=== PATIENT | male | born 1945 | race Caucasian/White ===

== ENCOUNTER 2020-12-04 14:42 | Inpatient (IN) ==
--- NOTE | 2020-12-04 15:38 | Emergency Department Note ---
HPI General Chief complaint: Cold/Flu Symptoms Stated complaint: cough, SOB Time Seen by Provider: 12/04/20 14:57 Source: patient and family Mode of arrival: ambulatory Limitations: no limitations History of Present Illness HPI Narrative: Patient is a 75-year-old gentleman who arrives the patient as well as telephone discussion with his daughter. The patient has been feeling ill for the past 5 days with a cough and mild shortness of breath. Symptoms were gradual in onset and been gradually improving. He was seen at [facility] on the and diagnosed with COVID-19. The patient has received both doses of a COVID-19 vaccine. Last night, he was showing intermittent episodes of confusion and his family noticed his oxygen saturation was as low as 81%. Because of that they were concerned and brought him to the emergency department for further evaluation. Currently, the patient says he feels much better. He did have one episode of loose stool earlier today but otherwise has no physical complaints at this time. Related Data Home Medications Medication Instructions Recorded Confirmed aspirin 81 mg tablet,delayed 81 mg PO QDAY 04/25/19 12/02/20 release cholecalciferol (vitamin D3) 25 25 mcg PO BID cap 07/19/19 12/02/20 mcg (1,000 unit) capsule lisinopril 10 mg tablet 10 mg PO QDAY 01/18/20 12/02/20 metoprolol succinate 25 mg 25 mg PO QDAY 04/17/20 12/02/20 tablet,extended release 24 hr vitamins A,C,I-iudj-rwnfrp 14,320 1 cap PO BID 10/25/20 12/02/20 unit-226 mg-200 unit capsule Previous Rx's Medication Instructions Recorded blood pressure monitor #1 each 07/19/19 tamsulosin 0.4 mg capsule 0.8 mg PO QDAY #60 cap 01/09/20 amlodipine 5 mg tablet 5 mg PO QDAY #30 tab 01/29/20 levothyroxine 150 mcg capsule 150 mcg PO QDAY #30 cap 05/13/20 fluoxetine 40 mg capsule 40 mg PO QAM #30 cap 06/05/20 pantoprazole 40 mg tablet,delayed 40 mg PO QDAY #30 tab 07/18/20 release ferrous sulfate 325 mg (65 mg 325 mg PO QDAY #30 tab 09/16/20 iron) tablet divalproex 125 mg tablet,delayed 125 mg PO ONCE #30 tab 09/23/20 release rosuvastatin 10 mg tablet 10 mg PO QDAY #30 tab 10/21/20 famotidine 20 mg tablet See Rx Instructions .ROUTE 11/14/20 .COMPLEX #30 tab Allergies Allergy/AdvReac Type Severity Reaction Status Date / Time baclofen Allergy Severe Hallucinati Verified 12/02/20 11:35 ng codeine AdvReac Severe Stomach Verified 12/02/20 11:35 upset Review of Systems ROS ROS Narrative: Narrative: All systems ED: reviewed and negative except as stated. Constitutional: Denies fever and chills Gastrointestinal: Denies abdominal pain, nausea and vomiting PFSH Narrative Patient History Narrative: Narrative: Medical/Surgical/Family History All Active Problems (Updated 12/04/20 @ 16:46 by Eddie Byrd DO) Acute kidney injury due to COVID-19 (Acute) COVID-19 (Acute) Degenerative joint disease of left hip (Acute) GERD (gastroesophageal reflux disease) (Chronic) Arthritis (Chronic) Type 2 diabetes mellitus without complications (Chronic) HTN (hypertension) (Chronic) Hyperlipidemia (Chronic) Kidney failure (Chronic) Joint pain (Chronic) Insomnia (Chronic) H/O renal calculi (Chronic) Cardiac pacemaker (Chronic) Diabetes mellitus (Chronic) Vasculitis (Chronic) Hypothyroid (Chronic) Pacemaker (Chronic) Iron deficiency anemia (Chronic) BPH with obstruction/lower urinary tract symptoms (Chronic) Hyperlipidemia (Chronic) 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) Cough (Chronic) Decreased GFR (Chronic) ESR raised (Chronic) CRP elevated (Chronic) SHAHZAD positive (Chronic) Serous otitis media (Chronic) Otalgia, bilateral (Chronic) Cough productive of purulent sputum (Chronic) Respiratory complication (Chronic) Chronic kidney disease (CKD) stage G2/A3, mildly decreased glomerular filtration rate (GFR) between 60-89 mL/min/1.73 square meter and albuminuria creatinine ratio greater than 300 mg/g (Chronic) Encounter for long-term (current) use of high-risk medication (Acute) Hearing loss d/t noise (Acute) CKD (chronic kidney disease), stage III (Acute) Senile dementia (Acute) BPH w urinary obs/LUTS (Acute) Prostate cancer screening (Acute) HTN (hypertension), benign (Acute) CKD stage G3a/A2, GFR 45-59 and albumin creatinine ratio 30-299 mg/g (Chronic) Ingrown toenail of both feet (Acute) Depression (Acute) Medical History SHAHZAD positive ANCA-associated vasculitis Arthritis BPH with obstruction/lower urinary tract symptoms CAD (coronary artery disease) Cardiac pacemaker CKD (chronic kidney disease), stage III CKD stage G3a/A2, GFR 45-59 and albumin creatinine ratio 30-299 mg/g Cough Cough productive of purulent sputum CRP elevated Decreased GFR Degenerative joint disease (DJD) of lumbar spine Diabetes mellitus Encounter for long-term (current) use of high-risk medication ESR raised GERD (gastroesophageal reflux disease) H/O renal calculi HTN (hypertension) Hyperlipidemia Hyperlipidemia Hypothyroid Insomnia Iron deficiency anemia Joint pain Kidney failure Otalgia, bilateral Pacemaker Respiratory complication Serous otitis media Type 2 diabetes mellitus without complications Vasculitis Surgical History Hip joint replacement by other means History of lumbar fusion History of pacemaker (~2018) S/P hip replacement S/P TAVR (transcatheter aortic valve replacement) (~2018) Family History Mother Dementia Grandfather Diabetes Father Heart attack Son Diabetes Social History Smoking Status: Former smoker Alcohol Intake Frequency: does not drink Substance Use: does not use Exam Narrative Narrative: I reviewed the vital signs. Gen -patient is awake and alert and in no acute distress. The patient is well groomed. HEENT -head is atraumatic. There is no conjunctival pallor or scleral icterus. Mucous membranes are moist. CV -S1-S2 regular rate and rhythm. Peripheral pulses are palpable. There is no JVD. Resp -breathing is nonlabored. Lungs are clear to auscultation bilaterally. There is no cyanosis. GI - Abdomen is soft and nontender to palpation. There is no guarding or rebound tenderness. Derm -skin is warm and dry. There is no visible rash. MSK -present extremities are atraumatic. Psych -patient has appropriate affect. The patient does not appear internally stimulated. Neuro -patient is very hard of hearing but when he is able to hear does answer questions appropriately and is oriented to person place time and situation. There is no facial asymmetry. Patient moves all present extremities equally. General Limitations: no limitations Course Vital Signs Vital signs: Vital Signs Temperature 97.8 F 12/04/20 14:43 Pulse Rate 59 L 12/04/20 14:43 Respiratory Rate 16 12/04/20 14:43 Blood Pressure 152/57 12/04/20 14:43 Pulse Oximetry (%) 98 12/04/20 14:43 Temperature 97.8 F 12/04/20 14:43 Pulse Rate 60 12/04/20 16:22 Respiratory Rate 16 12/04/20 14:43 Blood Pressure 138/49 12/04/20 16:22 Pulse Oximetry (%) 97 12/04/20 16:22 MDM MDM Narrative Medical decision making narrative: Patient presents with symptoms of COVID-19 recently diagnosed on outpatient testing. Given his family concerns for intermittent confusion I obtained a CT scan of his brain that does not reveal any subdural hematoma. Labs are remarkable for creatinine significantly increased above his baseline. He did have a brief episode of hypotension in the emergency department which responded to IV fluids. Given his acute kidney in jury I recommended the patient be admitted and he is agreeable. I also discussed this with his son-in-law on the and his family agrees with the plan. I discussed the patient's history examination and diagnostic findings with Dr. Wilcox, who agrees with the plan of care and accepts admission. Lab Data Lab results reviewed: Yes I reviewed the patient's lab results. Labs: Lab Results 12/04/20 Range/Units 15:48 POC Hct 36 L (41-55) % POC Sodium 135 (133-145) mEq/L POC Potassium 4.4 (3.3-5.1) mEql/L POC Chloride 99 (96-108) mEq/L POC Total CO2 23 (22-30) mmol/L POC BUN 40 H (6-20) mg/dL POC Creatinine 2.9 H (0.6-1.2) mg/dL POC Glucose 91 (70-105) mg/dL POC WB Ioniz Calcium 1.13 L (1.16-1.32) mmEq/L Discharge Plan Patient/Caregiver Discharge Instructions Pt seen by MILL ATTENDANT/PA only: No Clinical Impression: COVID-19, Acute kidney injury due to COVID-19 Patient Disposition: Xfer As Inpt ([facility]) Follow up with: Gorge Payan MD [Primary Care Provider] - Prescriptions: No Action aspirin [Adult Aspirin Regimen] 81 mg tablet,delayed release (DR/EC) 81 mg PO QDAY RF: 0 amlodipine 5 mg tablet 5 mg PO QDAY Qty: 30 RF: 11 levothyroxine 150 mcg capsule 150 mcg PO QDAY Qty: 30 RF: 11 pantoprazole 40 mg tablet,delayed release (DR/EC) 40 mg PO QDAY Qty: 30 RF: 12 ferrous sulfate [Feosol] 325 mg (65 mg iron) tablet 325 mg PO QDAY Qty: 30 RF: 6 rosuvastatin 10 mg tablet 10 mg PO QDAY Qty: 30 RF: 6 famotidine 20 mg tablet See Rx Instructions .ROUTE .COMPLEX Qty: 30 RF: 0 (DME) blood pressure monitor Kit See Rx Instructions .ROUTE .MEDSUPPLY Qty: 1 RF: 0 lisinopril 10 mg tablet 10 mg PO QDAY RF: 0 metoprolol succinate 25 mg tablet extended release 24 hr 25 mg PO QDAY RF: 0 cholecalciferol (vitamin D3) 25 mcg (1,000 unit) capsule 25 mcg PO BID RF: 0 fluoxetine [Prozac] 40 mg capsule 40 mg PO QAM Qty: 30 RF: 12 divalproex [Depakote] 125 mg tablet,delayed release (DR/EC) 125 mg PO ONCE Qty: 30 RF: 5 ICaps AREDS 14,320-226-200 [id number] capsule 1 cap PO BID RF: 0 tamsulosin [Flomax] 0.4 mg capsule 0.8 mg PO QDAY Qty: 60 RF: 12
[2020-12-04 15:58] LABS: POC Blood Urea Nitrogen 40 mg/dL (6-20); POC CO2 23 mmol/L (22-30); POC Calcium, Ionized 1.13 mmEq/L (1.16-1.32); POC Chloride 99 mEq/L (96-108); POC Creatinine 2.9 mg/dL (0.6-1.2); POC Glucose, Random 91 mg/dL (70-105); POC Hematocrit 36 % (41-55); POC Potassium 4.4 mEql/L (3.3-5.1); POC Sodium 135 mEq/L (133-145)
[2020-12-04] MEDS ORDERED: 0.9 % SODIUM CHLORIDE 1,000 ML IV ONE ×2 (16:16→16:39)
--- NOTE | 2020-12-04 16:28 | Cat Scan Report ---
History: Increased confusion, cough, shortness of breath TECHNIQUE: The brain was imaged without contrast in axial plane at 2.5 mm intervals. Sagittal and coronal reformats were created. The radiation exposure was limited using dose reduction technology. FINDINGS: There is moderate bilateral cerebellar atrophy and mild to moderate atrophy along the upper convexities of the frontal and parietal lobes. A moderate-sized old infarct with encephalomalacia is present lateral to the head of the right caudate nucleus. Measures approximately 7 x 17 mm size. There is loss of brain parenchyma around the infarct, resulting in mild enlargement of the frontal horn of the right lateral ventricle. No new infarct is detected. There is no hemorrhage or mass effect. No hydrocephalus is present. There is no abnormal extra-axial fluid collection. There is focal soft tissue thickening in the scalp anterior to the left frontal bone. This could be scar or inflammation. The calvarium is normal without evidence of a fracture or destructive bone lesion. Patient has mucosal thickening along the kim of many of the ethmoid air cells bilaterally. Large amount calcified plaque is present in the cavernous portions of both internal carotids and there is moderate involvement in the vertebral arteries at the foramen magnum. IMPRESSION: Moderate-sized old lacunar infarct lateral to the head of the right caudate nucleus. Generalized cerebral atrophy No acute abnormality is detected. Dr. Byrd was called with the report Interpreted and Authenticated by: Giorgi Deleon 12/04/20
[2020-12-04 17:00] LABS: Basophils # (Auto) 0.02 K/mcL (0.00-0.30); Basophils % (Auto) 0.4 % (0.0-2.0); Eosinophils # (Auto) 0.03 K/mcL (0.00-0.70); Eosinophils % (Auto) 0.5 % (0.0-7.0); Hemoglobin 12.2 g/dL (13.7-17.5); Lymphocytes # (Auto) 1.42 K/mcL (1.50-4.80); Lymphocytes % (Auto) 25.9 % (15.5-49.0); Mean Cell Volume 95.7 fL (80.0-100.0); Mean Corpuscular HGB Conc 32.1 g/dL (31.0-36.0); Mean Platelet Volume 10.3 fL (7.4-10.4); Monocytes % (Auto) 12.8 % (1.0-12.0); Neutrophils % (Auto) 60.4 % (38.0-78.0); Platelet Count 161 K/mcL (140-440); RBC 3.97 M/mcL (4.63-6.08); WBC 5.5 K/mcL (4.5-11.0)
--- NOTE | 2020-12-04 17:08 | Internal Med History&Physical ---
HPI History of Present Illness Patient information: Note initiated : 12/04/20 at 5:04 pm Service Date, if different from initiated Date: [] Patient: Kathi Malone a 75 y/o M admitted on for cough, SOB. Chief Complaint: [REHANA on CKD] History of present illness: Mr. Malone is a 75 year old M type 2 diabetes mellitus, essential hypertension's, mixed dyslipidemia, vasculitis, hypothyroidism, chronic kidney disease stage III, recently diagnosed Covid pneumonia, presenting with 5-day history of general body weakness and altered mental status. Patient is fully vaccinated against Covid pneumonia. Over the past 5 days, patient was noted by family member to have general body weakness as well as altered mental status. Patient is also seems to be more lethargic than his baseline. He also has mild shortness of breath with nonproductive cough. Denies any fever or chills. He was diagnosed with Covid pneumonia 2 days ago. He received a dose of outpatient monoclonal antibodies infusions against Covid yesterday. Patient was brought by family member to our ED today for evaluation mainly for his altered mental status and general body weakness. But at the time patient arrived the ED, his altered mental status has been resolved and his mental status went back to his baseline. Vital signs are within normal limits including oxygen saturation in the high 90s to 100% on room air. Labs significant for serum creatinine level 2.9 with baseline 1.7. Absence of leukocytosis with WBC 5.5. CT head without contrast no sign of acute intracranial pathologies. Admission request was made for IV fluid rehydration for acute kidney injury. Constitutional Constitutional: Present weakness; Absent chills, excessive sweating, fatigue and fever(s) EENT Eyes: Absent blurry vision, change in vision, loss of vision and other visual disturbances Ears: Absent decreased hearing and tinnitus Nose, mouth and throat: Absent abnormal hearing, dry mouth, headache(s), nasal congestion and sore throat Cardiovascular Cardiovascular: Absent chest pain, chest pain at rest, edema, irregular heart rhythm and palpatations Respiratory Respiratory: Absent cough, dyspnea and wheezing Gastrointestinal Gastrointestinal: Absent abdominal pain, constipation, diarrhea, nausea and vomiting Musculoskeletal Musculoskeletal: Absent back pain, deformity, limited range of motion, muscle cramps, muscle weakness and numbness Integumentary Integumentary: Absent lesions, rash and wounds Neurological Neurological: Present confusion; Absent focal weakness, headache(s) and numbness Psychiatric Psychiatric: Absent anxiety, depression and hallucinations PFSH PFSH All Active Problems (Updated 12/04/20 @ 16:46 by Eddie Byrd DO) Acute kidney injury due to COVID-19 (Acute) COVID-19 (Acute) Degenerative joint disease of left hip (Acute) GERD (gastroesophageal reflux disease) (Chronic) Arthritis (Chronic) Type 2 diabetes mellitus without complications (Chronic) HTN (hypertension) (Chronic) Hyperlipidemia (Chronic) Kidney failure (Chronic) Joint pain (Chronic) Insomnia (Chronic) H/O renal calculi (Chronic) Cardiac pacemaker (Chronic) Diabetes mellitus (Chronic) Vasculitis (Chronic) Hypothyroid (Chronic) Pacemaker (Chronic) Iron deficiency anemia (Chronic) BPH with obstruction/lower urinary tract symptoms (Chronic) Hyperlipidemia (Chronic) 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) Cough (Chronic) Decreased GFR (Chronic) ESR raised (Chronic) CRP elevated (Chronic) SHAHZAD positive (Chronic) Serous otitis media (Chronic) Otalgia, bilateral (Chronic) Cough productive of purulent sputum (Chronic) Respiratory complication (Chronic) Chronic kidney disease (CKD) stage G2/A3, mildly decreased glomerular filtration rate (GFR) between 60-89 mL/min/1.73 square meter and albuminuria creatinine ratio greater than 300 mg/g (Chronic) Encounter for long-term (current) use of high-risk medication (Acute) Hearing loss d/t noise (Acute) CKD (chronic kidney disease), stage III (Acute) Senile dementia (Acute) BPH w urinary obs/LUTS (Acute) Prostate cancer screening (Acute) HTN (hypertension), benign (Acute) CKD stage G3a/A2, GFR 45-59 and albumin creatinine ratio 30-299 mg/g (Chronic) Ingrown toenail of both feet (Acute) Depression (Acute) Medical History SHAHZAD positive ANCA-associated vasculitis Arthritis BPH with obstruction/lower urinary tract symptoms CAD (coronary artery disease) Cardiac pacemaker CKD (chronic kidney disease), stage III CKD stage G3a/A2, GFR 45-59 and albumin creatinine ratio 30-299 mg/g Cough Cough productive of purulent sputum CRP elevated Decreased GFR Degenerative joint disease (DJD) of lumbar spine Diabetes mellitus Encounter for long-term (current) use of high-risk medication ESR raised GERD (gastroesophageal reflux disease) H/O renal calculi HTN (hypertension) Hyperlipidemia Hyperlipidemia Hypothyroid Insomnia Iron deficiency anemia Joint pain Kidney failure Otalgia, bilateral Pacemaker Respiratory complication Serous otitis media Type 2 diabetes mellitus without complications Vasculitis Surgical History Hip joint replacement by other means History of lumbar fusion History of pacemaker (~2018) S/P hip replacement S/P TAVR (transcatheter aortic valve replacement) (~2018) Family History Mother Dementia Grandfather Diabetes Father Heart attack Son Diabetes Social History marital status: occupational status: retired alcohol intake frequency: does not drink substance use type: does not use MEDS/ALLERGIES Home Medications and Allergies Home Medications Medication Instructions Recorded Confirmed Type aspirin 81 mg tablet,delayed 81 mg PO QDAY 04/25/19 12/02/20 History release blood pressure monitor #1 each 07/19/19 12/02/20 Rx cholecalciferol (vitamin D3) 25 25 mcg PO BID cap 07/19/19 12/02/20 History mcg (1,000 unit) capsule tamsulosin 0.4 mg capsule 0.8 mg PO QDAY #60 cap 01/09/20 12/02/20 Rx lisinopril 10 mg tablet 10 mg PO QDAY 01/18/20 12/02/20 History amlodipine 5 mg tablet 5 mg PO QDAY #30 tab 01/29/20 12/02/20 Rx metoprolol succinate 25 mg 25 mg PO QDAY 04/17/20 12/02/20 History tablet,extended release 24 hr levothyroxine 150 mcg capsule 150 mcg PO QDAY #30 cap 05/13/20 12/02/20 Rx fluoxetine 40 mg capsule 40 mg PO QAM #30 cap 06/05/20 12/02/20 Rx pantoprazole 40 mg tablet,delayed 40 mg PO QDAY #30 tab 07/18/20 12/02/20 Rx release ferrous sulfate 325 mg (65 mg 325 mg PO QDAY #30 tab 09/16/20 12/02/20 Rx iron) tablet divalproex 125 mg tablet,delayed 125 mg PO ONCE #30 tab 09/23/20 12/02/20 Rx release rosuvastatin 10 mg tablet 10 mg PO QDAY #30 tab 10/21/20 12/02/20 Rx vitamins A,C,H-zwvz-ebcsgf 14,320 1 cap PO BID 10/25/20 12/02/20 History unit-226 mg-200 unit capsule famotidine 20 mg tablet See Rx Instructions .ROUTE 11/14/20 12/02/20 Rx .COMPLEX #30 tab Allergies Allergy/AdvReac Type Severity Reaction Status Date / Time baclofen Allergy Severe Hallucinati Verified 12/02/20 11:35 ng codeine AdvReac Severe Stomach Verified 12/02/20 11:35 upset EXAM Constitutional Vitals: Temp Pulse Resp BP Pulse Ox 36.6 C 60 16 105/43 96 12/04/20 14:43 12/04/20 16:46 12/04/20 14:43 12/04/20 16:46 12/04/20 16:46 General appearance: cooperative and no acute distress Head Head exam: Present atraumatic and normocephalic Eye Eye exam: Present EOMI and PERRL ENT ENT exam: Present mucous membranes moist and normal external ear exam; Absent normal exam Additional comments: Decreased bilateral hearing Neck Neck exam: Present normal inspection; Absent lymphadenopathy, tenderness and thyromegaly Respiratory Respiratory exam: Absent accessory muscle use, respiratory distress and wheezes Cardiovascular Cardiovascular exam: Present normal rate and rhythm; Absent JVD GI/Abdominal GI/Abdominal exam: Present normal bowel sounds and soft; Absent organomegaly and tenderness Rectal Rectal exam: Present deferred Extremities Exam Extremities exam: Present full ROM, normal capillary refill and normal inspection; Absent tenderness Neurological Exam Neurological exam: Present alert and CN II-XII intact; Absent motor sensory deficit and oriented X3 Additional comments: Oriented x2 to person and place only Psychiatric Psychiatric exam: Present normal affect and normal mood; Absent anxious and depressed Skin Skin exam: Present dry and intact DATA Data Completed and Pending Labs: Labs from last 24 hours 12/04/20 12/04/20 15:48 15:30 WBC 5.5 RBC 3.97 L Hgb 12.2 L Hct 38.0 L POC Hct 36 L MCV 95.7 MCH 30.7 MCHC 32.1 RDW 13.0 Plt Count 161 MPV 10.3 Neut % (Auto) 60.4 Lymph % (Auto) 25.9 Will % (Auto) 12.8 H Eos % (Auto) 0.5 Baso % (Auto) 0.4 Lymph # (Auto) 1.42 L Will # (Auto) 0.70 Eos # (Auto) 0.03 Baso # (Auto) 0.02 Absolute Neutrophils 3.31 POC Sodium 135 POC Potassium 4.4 POC Chloride 99 POC Total CO2 23 POC BUN 40 H POC Creatinine 2.9 H POC Glucose 91 POC WB Ioniz Calcium 1.13 L A/P Assessment and plan (1) Acute kidney injury due to COVID-19: Status: Acute (2) GERD (gastroesophageal reflux disease): Status: Chronic Qualifiers: Esophagitis presence: without esophagitis Qualified Code(s): K21.9 - Gastro-esophageal reflux disease without esophagitis (3) Type 2 diabetes mellitus without complications: Status: Chronic Qualifiers: Diabetes mellitus termite renewal inspector insulin use: without care home use Qualified Code(s): E11.9 - Type 2 diabetes mellitus without complications (4) HTN (hypertension): Status: Chronic Qualifiers: Hypertension type: essential hypertension Qualified Code(s): I10 - Essential (primary) hypertension (5) Hyperlipidemia: Status: Chronic (6) Hypothyroid: Status: Chronic Qualifiers: Hypothyroidism type: acquired Qualified Code(s): E03.9 - Hypothyroidism, unspecified (7) Pacemaker: Status: Chronic (8) BPH with obstruction/lower urinary tract symptoms: Status: Chronic (9) ANCA-associated vasculitis: Status: Acute (10) CKD (chronic kidney disease), stage III: Status: Acute Qualifiers: Chronic kidney disease stage 3 subtype: stage 3a (GFR 45-59) Qualified Code(s): N18.31 - Chronic kidney disease, stage 3a (11) COVID-19: Status: Acute Narrative A/P Narrative: Assessment and Plans: 1. Acute kidney injury due to CoVID pneumonia, context of chronic kidney disease stage III: Admit to inpatient med surg Isolation protocol: Airborne and contact Avoid nephrotoxic agents Status post 2 L NS fluid boluses given in the ED, to be followed by NS at 100 cc/h CMP morning to trend kidney functions CBC with auto differential in the morning to trend WBC Dexamethasone not indicated given the fact that patient is tolerating room air Remdesivir not indicated given the fact that patient is tolerating room air #2 type 2 diabetes mellitus: Hemoglobin A1c Hold any oral hypoglycemics Low-dose correctional scale insulin AC at bedtime Accu-Chek AC at bedtime Hypoglycemia protocol Diabetic renal diet #3 history of essential hypertension's: Currently soft BP, hold or oral antihypertensives at the moment #4 history of mixed dyslipidemia: Continue statin therapy 5. Hypothyroidism: Continue oral thyroid replacement therapy 6. BPH: Continue Flomax 7. History of ANCA vasculitis: Continue to monitor #8 history of GERD: Continue oral PPI from home regiment GI prophylaxis: Continue oral PPI from home regiment DVT prophylaxis: Heparin CODE STATUS: Full code Prognosis: Guarded Disposition: Inpatient MedSurg Time Spent With Patient Time: Total time spent is greater than 50% in coordination of care (as documented) at patient's floor/unit and/or counseling patient: Total time spent with greater than 50% in coordination of care (as documented) at patient's floor/unit and/or counseling patient:: 25 - 35 minutes
--- NOTE | 2020-12-04 17:43 | XRay Report ---
HISTORY: Covid, cough, shortness of breath FINDINGS: The lungs are clear and well-expanded, without evidence of pneumonia. There is no mass, adenopathy or pleural effusion. The heart size and pulmonary vasculature are normal. Patient has a pacemaker and a cardiac aortic valve. There has been little change since 07/10/19. IMPRESSION: No acute abnormality Interpreted and Authenticated by: Giorgi Deleon 12/04/20
[2020-12-04] MEDS ORDERED: DIVALPROEX 125 MG PO SCH (19:19)
[2020-12-04] MEDS ORDERED: DEXTROSE 50% 50 ML VIAL IV PRN (19:19)
[2020-12-04] MEDS ORDERED: [UNRECOGNIZED DRUG - OTHER] PO SCH (19:19)
[2020-12-04] MEDS ORDERED: ZOLPIDEM 5 MG TABLET PO PRN (19:19)
[2020-12-04] MEDS ORDERED: ONDANSETRON 4 MG/2 ML VIAL IV PRN (19:19)
[2020-12-04] MEDS ORDERED: IPRATROPIUM/ALBUTEROL 3 ML AMPUL.NEB NEB PRN (19:19)
[2020-12-04] MEDS ORDERED: DEXTROSE 31 GM ORAL.SUSP PO PRN (19:19)
[2020-12-04] MEDS ORDERED: FAMOTIDINE 20 MG TABLET PO SCH (19:19)
[2020-12-04] MEDS ORDERED: ACETAMINOPHEN 325 MG TABLET PO PRN (19:19)
[2020-12-04] MEDS: 0.9 % SODIUM CHLORIDE 10 ML SYRINGE IV SCH (20:20)
[2020-12-04] MEDS: 0.9 % SODIUM CHLORIDE 1,000 ML IV SCH (20:20)
[2020-12-04] MEDS: INSULIN LISPRO 1 UNIT/0.01 ML UNIT SQ SCH (20:24)
[2020-12-04] MEDS: DOCUSATE SODIUM 100 MG CAPSULE PO SCH (20:25)
[2020-12-04] MEDS: SENNOSIDES 1 TABLET PO SCH (20:25)
[2020-12-04] MEDS: HEPARIN 5,000 UNIT/ML VIAL SQ SCH (20:44)
[2020-12-04] MEDS ORDERED: [UNRECOGNIZED DRUG - OTHER] PO SCH (21:00)
[2020-12-04] MEDS ORDERED: VITAMINS A C E ZINC COPPER PO SCH (21:00)
[2020-12-05 00:06] LABS: Hemoglobin A1C 6.9 % Hgb (4.0-6.0)
[2020-12-05] MEDS: 0.9 % SODIUM CHLORIDE 1,000 ML IV SCH ×2 (05:57→16:13)
[2020-12-05] MEDS: 0.9 % SODIUM CHLORIDE 10 ML SYRINGE IV SCH ×3 (05:58→20:23)
[2020-12-05 07:24] LABS: Basophils # (Auto) 0.01 K/mcL (0.00-0.30); Basophils % (Auto) 0.3 % (0.0-2.0); Eosinophils # (Auto) 0.12 K/mcL (0.00-0.70); Eosinophils % (Auto) 3.5 % (0.0-7.0); Hematocrit 35.4 % (40.1-51.0); Hemoglobin 11.2 g/dL (13.7-17.5); Lymphocytes # (Auto) 1.08 K/mcL (1.50-4.80); Lymphocytes % (Auto) 31.7 % (15.5-49.0); Mean Cell Volume 98.1 fL (80.0-100.0); Mean Corpuscular HGB Conc 31.6 g/dL (31.0-36.0); Mean Platelet Volume 10.4 fL (7.4-10.4); Monocytes # (Auto) 0.42 K/mcL (0.10-0.90); Monocytes % (Auto) 12.3 % (1.0-12.0); Neutrophils % (Auto) 52.2 % (38.0-78.0); Platelet Count 143 K/mcL (140-440); RBC 3.61 M/mcL (4.63-6.08); Red Cell Distribution Width 12.9 % (11.5-14.5); WBC 3.4 K/mcL (4.5-11.0)
[2020-12-05 08:13] LABS: ALT/SGPT 12 U/L (<40); AST/SGOT 20 U/L (<40); Albumin/Globulin Ratio 1.3 (1.0-2.3); Alkaline Phosphatase 94 U/L (39-117); Bilirubin,Total 0.3 mg/dL (0.1-1.0); Blood Urea Nitrogen 30 mg/dL (8-23); Calcium 7.8 mg/dL (8.6-10.4); Carbon Dioxide 19 mmol/L (22-30); Chloride 110 mmol/L (96-108); Globulin 2.3 gm/dL (2.2-3.7); Glomerular Filtration Rate 32; Glucose 67 mg/dL (70-105)
[2020-12-05] MEDS ORDERED: FLUoxetine HCL 20 MG CAPSULE PO SCH (09:00)
[2020-12-05] MEDS: FERROUS SULFATE 325 MG TABLET PO SCH (09:13)
[2020-12-05] MEDS: VIT A,C & E/LUTEIN/MINERALS TABLET PO SCH ×2 (09:13→20:22)
[2020-12-05] MEDS: DOCUSATE SODIUM 100 MG CAPSULE PO SCH ×2 (09:13→20:22)
[2020-12-05] MEDS: PANTOPRAZOLE 40 MG TABLET PO SCH (09:14)
[2020-12-05] MEDS: ASPIRIN 81 MG TAB.CHEW PO SCH (09:14)
[2020-12-05] MEDS: VITAMIN D3 1,000 UNIT TABLET PO SCH ×2 (09:14→20:22)
[2020-12-05] MEDS: LEVOTHYROXINE 150 MCG TABLET PO SCH (09:15)
[2020-12-05] MEDS: DIVALPROEX 125 MG CAP.SPRINK PO SCH (09:15)
[2020-12-05] MEDS: TAMSULOSIN 0.4 MG CAPSULE PO SCH (09:16)
[2020-12-05] MEDS: INSULIN LISPRO 1 UNIT/0.01 ML UNIT SQ SCH ×4 (09:20→20:23)
[2020-12-05] MEDS: HEPARIN 5,000 UNIT/ML VIAL SQ SCH ×2 (09:24→20:22)
--- NOTE | 2020-12-05 13:41 | Internal Med Progress Note ---
SUBJECTIVE Subjective Patient information: Note initiated : 12/05/20 at 1:38 pm Service Date, if different from initiated Date: [] Patient: Kathi Malone a 75 y/o M admitted on 12/04/20 for cough, SOB. Chief Complaint: [REHANA, CoVID] Interval history: History of present illness: Mr. Malone is a 75 year old M type 2 diabetes mellitus, essential hypertension's, mixed dyslipidemia, vasculitis, hypothyroidism, chronic kidney disease stage III, recently diagnosed Covid pneumonia, presenting with 5-day history of general body weakness and altered mental status. Patient is fully vaccinated against Covid pneumonia. Over the past 5 days, patient was noted by family member to have general body weakness as well as altered mental status. Patient is also seems to be more lethargic than his baseline. He also has mild shortness of breath with nonproductive cough. Denies any fever or chills. He was diagnosed with Covid pneumonia 2 days ago. He received a dose of outpatient monoclonal antibodies infusions against Covid yesterday. Patient was brought by family member to our ED today for evaluation mainly for his altered mental status and general body weakness. But at the time patient arrived the ED, his altered mental status has been resolved and his mental status went back to his baseline. Vital signs are within normal limits including oxygen saturation in the high 90s to 100% on room air. Labs significant for serum creatinine level 2.9 with baseline 1.7. Absence of leukocytosis with WBC 5.5. CT head without contrast no sign of acute intracranial pathologies. Admission request was made for IV fluid rehydration for acute kidney injury. 12/05: Serum Cr 2.9-->2.0. Been afebrile. Been on room air. c/o nonproductive cough. Denies SOB. Denies wheezing. Denies chest pain. Denies fever chills or sweating. Constitutional Vitals: Vital Signs Temp Pulse Resp BP Pulse Ox 36.2 C 63 18 125/46 93 12/05/20 12:49 12/05/20 12:49 12/05/20 12:49 12/05/20 12:49 12/05/20 12:49 Period Temp Pulse Resp BP Sys/Poe Pulse Ox Last 24 Hr 35.8 C-36.6 C 58-76 16-18 95-155/41-78 92-100 Intake and Output 12/04/20 12/05/20 12/05/20 21:59 05:59 13:59 Intake Total 1999 1299 Output Total 750 1100 Balance 1999 550 -1100 Weight 85.502 kg Intake & Output: Intake & Output 12/04/20 12/05/20 12/05/20 21:59 05:59 13:59 Intake Total 1999 1299 Output Total 750 1100 Balance 1999 550 -1100 Weight 85.502 kg Intake: IV 1999 1000 Sodium Chloride 0.9% 1,000 ml @ 2000 1000 100 mls/hr IV .Q10H [facility] Rx#: [id number] Oral 300 Output: Void Amount 750 1100 Other: Meal Breakfast Percent of Meal Consumed 75% Urine Appearance Clear Clear Urine Color Straw Bright Yellow Urine Odor Normal General appearance: cooperative and no acute distress Head Head exam: Present atraumatic and normocephalic Eye Eye exam: Present EOMI and PERRL ENT ENT exam: Present mucous membranes moist and normal external ear exam; Absent normal exam Additional comments: decreased bilateral hearing Neck Neck exam: Present normal inspection; Absent lymphadenopathy, tenderness and thyromegaly Respiratory Respiratory exam: Absent accessory muscle use, respiratory distress and wheezes Cardiovascular Cardiovascular exam: Present normal rate and rhythm; Absent JVD GI/Abdominal GI/Abdominal exam: Present normal bowel sounds and soft; Absent organomegaly and tenderness Rectal Rectal exam: Present deferred Extremities Exam Extremities exam: Present full ROM, normal capillary refill and normal inspection; Absent tenderness Neurological Exam Neurological exam: Present alert, CN II-XII intact and oriented X3; Absent motor sensory deficit Psychiatric Psychiatric exam: Present normal affect and normal mood; Absent anxious and depressed Skin Skin exam: Present dry and intact OBJ DATA Labs CBC & Chem 7: 12/05/20 05:30 12/05/20 05:30 Labs: Abnormal Lab Results 12/05/20 12/05/20 12/04/20 05:30 05:30 15:48 WBC 3.4 L RBC 3.61 L Hgb 11.2 L Hct 35.4 L POC Hct 36 L Kay % (Auto) 12.3 H Lymph # (Auto) 1.08 L Absolute Neutrophils 1.78 L Chloride 110 H Carbon Dioxide 19 L POC BUN 40 H BUN 30 H Creatinine 2.0 H POC Creatinine 2.9 H Glucose 67 L Hemoglobin A1c Calcium 7.8 L POC WB Ioniz Calcium 1.13 L Total Protein 5.3 L Albumin 3.0 L 12/04/20 12/04/20 15:30 15:30 WBC RBC 3.97 L Hgb 12.2 L Hct 38.0 L POC Hct Kay % (Auto) 12.8 H Lymph # (Auto) 1.42 L Absolute Neutrophils Chloride Carbon Dioxide POC BUN BUN Creatinine POC Creatinine Glucose Hemoglobin A1c 6.9 H Calcium POC WB Ioniz Calcium Total Protein Albumin Meds: Medications Acetaminophen (Acetaminophen 325 Mg Tablet) 650 mg PO Q6HP PRN; Protocol PRN Reason: Per Pain Protocol/Fever > 101 Albuterol/Ipratropium (Ipratropium/Albuterol 3 Ml Ampul.Neb) 3 ml NEB Q4HRT PRN PRN Reason: Wheezing Aspirin (Aspirin 81 Mg Tab.Chew) 81 mg PO DAILY [facility] Last Admin: 12/05/20 09:14 Dose: 81 mg Documented by: Atorvastatin Calcium (Atorvastatin 20 Mg Tablet) 20 mg PO HS [facility] Dextrose (Dextrose 50% 50 Ml Vial) 0 ml IV UD PRN PRN Reason: Hypoglycemia Diagnostic Test (Pha) (Accu-Chek 1 Each Strip) 1 each FS ACHS [facility] Last Admin: 12/05/20 12:41 Dose: 1 each Documented by: Divalproex Sodium (Divalproex 125 Mg Cap.Sprink) 125 mg PO DAILY [facility] Last Admin: 12/05/20 09:15 Dose: 125 mg Documented by: Docusate Sodium (Docusate Sodium 100 Mg Capsule) 100 mg PO BID [facility] Last Admin: 12/05/20 09:13 Dose: Not Given Documented by: Famotidine (Famotidine 20 Mg Tablet) 20 mg PO [facility] Ferrous Sulfate (Ferrous Sulfate 325 Mg Tablet) [address] [facility] Last Admin: 12/05/20 09:13 Dose: 325 mg Documented by: Fluoxetine HCl (Fluoxetine Hcl 20 Mg Capsule) 20 mg PO DAILY [facility] Glucose (Dextrose 31 Gm Oral.Susp) 15 gm PO PRN PRN PRN Reason: Hypoglycemia Heparin Sodium (Porcine) (Heparin 5,000 Unit/Ml Vial) 5,000 unit SQ Q12 [facility] Last Admin: 12/05/20 09:24 Dose: 5,000 unit Documented by: Sodium Chloride (Sodium Chloride 0.9%) 1,000 mls @ 100 mls/hr IV .Q10H [facility] Last Admin: 12/05/20 05:57 Dose: 100 mls/hr Documented by: Insulin Human Lispro (Insulin Lispro 1 Unit/0.01 Ml Unit) 0 unit SQ ACHS [facility]; Protocol Last Admin: 12/05/20 12:42 Dose: Not Given Documented by: Levothyroxine Sodium (Levothyroxine 150 Mcg Tablet) 150 mcg PO QAMAC [facility] Last Admin: 12/05/20 09:15 Dose: 150 mcg Documented by: Multivitamins/Minerals (Vit A,C & E/Lutein/Minerals Tablet) 1 tab PO BID [facility] Last Admin: 12/05/20 09:13 Dose: 1 tab Documented by: Ondansetron HCl (Ondansetron 4 Mg/2 Ml Vial) 4 mg IV Q6HP PRN PRN Reason: Nausea And Vomiting Pantoprazole Sodium (Pantoprazole 40 Mg Tablet) 40 mg PO QDAY [facility] Last Admin: 12/05/20 09:14 Dose: 40 mg Documented by: Pneumococcal Polyvalent Vaccine (Pneumococcal 23-Sherlyn P-Sac Vac 0.5 Ml Syringe) 0.5 ml IM .ONCE ONE Stop: 12/06/20 10:01 Senna (Sennosides 1 Tablet) 2 tab PO HS [facility] Last Admin: 12/04/20 20:25 Dose: Not Given Documented by: Sodium Chloride (0.9 % Sodium Chloride 10 Ml Syringe) 10 ml IV Q8 [facility] Last Admin: 12/05/20 13:11 Dose: Not Given Documented by: Tamsulosin HCl (Tamsulosin 0.4 Mg Capsule) 0.8 mg PO QDAY [facility] Last Admin: 12/05/20 09:16 Dose: 0.8 mg Documented by: Vitamin D (Vitamin D3 1,000 Unit Tablet) 1,000 unit PO BID [facility] Last Admin: 12/05/20 09:14 Dose: 1,000 unit Documented by: Zolpidem Tartrate (Zolpidem 5 Mg Tablet) 5 mg PO HSP PRN PRN Reason: Insomnia A/P Assessment and plan (1) Acute kidney injury due to COVID-19: Status: Acute (2) GERD (gastroesophageal reflux disease): Status: Chronic Qualifiers: Esophagitis presence: without esophagitis Qualified Code(s): K21.9 - Gastro-esophageal reflux disease without esophagitis (3) Type 2 diabetes mellitus without complications: Status: Chronic Qualifiers: Diabetes mellitus fdc insulin use: without fdc use Qualified Code(s): E11.9 - Type 2 diabetes mellitus without complications (4) HTN (hypertension): Status: Chronic Qualifiers: Hypertension type: essential hypertension Qualified Code(s): I10 - Essential (primary) hypertension (5) Hyperlipidemia: Status: Chronic (6) Hypothyroid: Status: Chronic Qualifiers: Hypothyroidism type: acquired Qualified Code(s): E03.9 - Hypothyroidism, unspecified (7) Pacemaker: Status: Chronic (8) BPH with obstruction/lower urinary tract symptoms: Status: Chronic (9) ANCA-associated vasculitis: Status: Acute (10) CKD (chronic kidney disease), stage III: Status: Acute Qualifiers: Chronic kidney disease stage 3 subtype: stage 3a (GFR 45-59) Qualified Code(s): N18.31 - Chronic kidney disease, stage 3a (11) COVID-19: Status: Acute Narrative A/P Narrative: Assessment and Plans: 1. Acute kidney injury due to CoVID pneumonia, context of chronic kidney disease stage III: Stays in inpatient med surg Isolation protocol: Airborne and contact Avoid nephrotoxic agents Status post 2 L NS fluid boluses given in the ED, to be followed by NS at 100 cc/h CMP morning to trend kidney functions CBC with auto differential in the morning to trend WBC Dexamethasone not indicated given the fact that patient is tolerating room air Remdesivir not indicated given the fact that patient is tolerating room air #2 type 2 diabetes mellitus: Hemoglobin A1c Hold any oral hypoglycemics Low-dose correctional scale insulin AC at bedtime Accu-Chek AC at bedtime Hypoglycemia protocol Diabetic renal diet #3 history of essential hypertension's: Currently soft BP, hold or oral antihypertensives at the moment #4 history of mixed dyslipidemia: Continue statin therapy 5. Hypothyroidism: Continue oral thyroid replacement therapy 6. BPH: Continue Flomax 7. History of ANCA vasculitis: Continue to monitor #8 history of GERD: Continue oral PPI from home regiment GI prophylaxis: Continue oral PPI from home regiment DVT prophylaxis: Heparin CODE STATUS: DNI DNR Prognosis: Stable Disposition: Inpatient MedSurg Time Spent With Patient Time: Total time spent is greater than 50% in coordination of care (as documented) at patient's floor/unit and/or counseling patient: QUALITY VTE Deep Vein Thrombosis/Pulmonary Embolism Present on Admission: No
[2020-12-05] MEDS: SENNOSIDES 1 TABLET PO SCH (20:22)
[2020-12-05] MEDS ORDERED: FAMOTIDINE 20 MG TABLET PO SCH (21:00)
[2020-12-05] MEDS ORDERED: ATORVASTATIN 20 MG TABLET PO SCH (21:00)
[2020-12-06] MEDS: 0.9 % SODIUM CHLORIDE 1,000 ML IV SCH ×2 (02:13→12:30)
[2020-12-06] MEDS: 0.9 % SODIUM CHLORIDE 10 ML SYRINGE IV SCH ×2 (05:19→13:06)
[2020-12-06 07:00] LABS: Basophils # (Auto) 0.01 K/mcL (0.00-0.30); Basophils % (Auto) 0.2 % (0.0-2.0); Eosinophils # (Auto) 0.11 K/mcL (0.00-0.70); Eosinophils % (Auto) 2.6 % (0.0-7.0); Hematocrit 37.6 % (40.1-51.0); Hemoglobin 11.5 g/dL (13.7-17.5); Lymphocytes # (Auto) 1.18 K/mcL (1.50-4.80); Mean Cell Volume 97.4 fL (80.0-100.0); Mean Corpuscular HGB Conc 30.6 g/dL (31.0-36.0); Mean Platelet Volume 9.9 fL (7.4-10.4); Monocytes % (Auto) 11.8 % (1.0-12.0); Neutrophils % (Auto) 57.4 % (38.0-78.0); Platelet Count 145 K/mcL (140-440); RBC 3.86 M/mcL (4.63-6.08); WBC 4.2 K/mcL (4.5-11.0)
[2020-12-06 07:35] LABS: ALT/SGPT 15 U/L (<40); AST/SGOT 28 U/L (<40); Albumin 3.2 gm/dL (3.2-5.2); Albumin/Globulin Ratio 1.4 (1.0-2.3); Alkaline Phosphatase 102 U/L (39-117); Bilirubin,Total 0.3 mg/dL (0.1-1.0); Blood Urea Nitrogen 22 mg/dL (8-23); Calcium 8.2 mg/dL (8.6-10.4); Carbon Dioxide 19 mmol/L (22-30); Chloride 108 mmol/L (96-108); Globulin 2.3 gm/dL (2.2-3.7); Glomerular Filtration Rate 39; Glucose 79 mg/dL (70-105)
[2020-12-06] MEDS: INSULIN LISPRO 1 UNIT/0.01 ML UNIT SQ SCH ×2 (08:17→12:17)
[2020-12-06] MEDS: VITAMIN D3 1,000 UNIT TABLET PO SCH (08:18)
[2020-12-06] MEDS: DOCUSATE SODIUM 100 MG CAPSULE PO SCH (08:18)
[2020-12-06] MEDS: FERROUS SULFATE 325 MG TABLET PO SCH (08:18)
[2020-12-06] MEDS: PANTOPRAZOLE 40 MG TABLET PO SCH (08:18)
[2020-12-06] MEDS: DIVALPROEX 125 MG CAP.SPRINK PO SCH (08:18)
[2020-12-06] MEDS: TAMSULOSIN 0.4 MG CAPSULE PO SCH (08:18)
[2020-12-06] MEDS: LEVOTHYROXINE 150 MCG TABLET PO SCH (08:19)
[2020-12-06] MEDS: VIT A,C & E/LUTEIN/MINERALS TABLET PO SCH (08:19)
[2020-12-06] MEDS: ASPIRIN 81 MG TAB.CHEW PO SCH (08:19)
[2020-12-06] MEDS: HEPARIN 5,000 UNIT/ML VIAL SQ SCH (08:22)
[2020-12-06] MEDS ORDERED: [UNRECOGNIZED DRUG - OTHER] PO SCH (09:00)
[2020-12-06] MEDS ORDERED: LEVOTHYROXINE 150 MCG TABLET PO SCH (09:00)
[2020-12-06] MEDS ORDERED: DIVALPROEX 125 MG PO SCH (09:00)
[2020-12-06] MEDS ORDERED: FLUoxetine HCL 20 MG CAPSULE PO SCH (09:00)
[2020-12-06] MEDS ORDERED: FLU VACC QS2021-22(6MOS UP)/PF 60 MCG/0.5 ML SYRINGE IM ONE (10:00)
[2020-12-06] MEDS ORDERED: PNEUMOCOCCAL 23-VAL P-SAC VAC 0.5 ML SYRINGE IM ONE (10:00)
--- NOTE | 2020-12-06 10:19 | Discharge Summary ---
Discharge Provider Provider Patient information: Note initiated : 12/06/20 at 10:18 am Service Date, if different from initiated Date: [] Patient: Kathi Malone 75 y/o M admitted on 12/04/20 for cough, SOB. Chief Complaint: [] Date of admission: 12/04/20 19:15 Discharge date: 12/06/20 Primary care physician: Gorge Payan MD Consults: 12/04/20 Consult to Physician [CONS] Stat Comment: Consulting Provider: Mayur Wilcox Reason For Exam: Physician to Consult Discharge Meds Discharge Medications Home Medications aspirin 81 mg tablet,delayed release 81 mg PO QDAY 04/25/19 [History Confirmed 12/05/20 Last Taken Unknown] blood pressure monitor #1 each 07/19/19 [Rx Confirmed 12/04/20 Last Taken Unknown] cholecalciferol (vitamin D3) 25 mcg (1,000 unit) capsule 25 mcg PO BID cap 07/19/19 [History Confirmed 12/05/20 Last Taken Unknown] tamsulosin 0.4 mg capsule 0.8 mg PO QDAY #60 cap 01/09/20 [Rx Confirmed 12/05/20 Last Taken Unknown] lisinopril 10 mg tablet 10 mg PO QDAY 01/18/20 [History Confirmed 12/05/20 Last Taken Unknown] amlodipine 5 mg tablet 5 mg PO QDAY #30 tab 01/29/20 [Rx Confirmed 12/05/20 Last Taken Unknown] metoprolol succinate 25 mg tablet,extended release 24 hr 25 mg PO QDAY 04/17/20 [History Confirmed 12/05/20 Last Taken Unknown] pantoprazole 40 mg tablet,delayed release 40 mg PO QDAY #30 tab 07/18/20 [Rx Confirmed 12/05/20 Last Taken Unknown] ferrous sulfate 325 mg (65 mg iron) tablet 325 mg PO QDAY #30 tab 09/16/20 [Rx Confirmed 12/05/20 Last Taken Unknown] rosuvastatin 10 mg tablet 10 mg PO QDAY #30 tab 10/21/20 [Rx Confirmed 12/05/20 Last Taken Unknown] vitamins A,C,J-qvuc-ijkokr 14,320 unit-226 mg-200 unit capsule 1 cap PO BID 10/25/20 [History Confirmed 12/05/20 Last Taken Unknown] divalproex 125 mg PO DAILY 12/05/20 [History Confirmed 12/05/20 Last Taken Unknown] fluoxetine 20 mg PO DAILY 12/05/20 [History Confirmed 12/05/20 Last Taken Unknown] levothyroxine [Euthyrox] 150 mcg PO DAILY 12/05/20 [History Confirmed 12/05/20 Last Taken Unknown] COURSE Hospital Course Hospital course: Interval history: History of present illness: Mr. Malone is a 75 year old M type 2 diabetes mellitus, essential hypertension's, mixed dyslipidemia, vasculitis, hypothyroidism, chronic kidney disease stage III, recently diagnosed Covid pneumonia, presenting with 5-day history of general body weakness and altered mental status. Patient is fully vaccinated against Covid pneumonia. Over the past 5 days, patient was noted by family member to have general body weakness as well as altered mental status. Patient is also seems to be more lethargic than his baseline. He also has mild shortness of breath with nonproductive cough. Denies any fever or chills. He was diagnosed with Covid pneumonia 2 days ago. He received a dose of outpatient monoclonal antibodies infusions against Covid yesterday. Patient was brought by family member to our ED today for evaluation mainly for his altered mental status and general body weakness. But at the time patient arrived the ED, his altered mental status has been resolved and his mental status went back to his baseline. Vital signs are within normal limits including oxygen saturation in the high 90s to 100% on room air. Labs significant for serum creatinine level 2.9 with baseline 1.7. Absence of leukocytosis with WBC 5.5. CT head without contrast no sign of acute intracranial pathologies. Admission request was made for IV fluid rehydration for acute kidney injury. 12/05: Serum Cr 2.9-->2.0. Been afebrile. Been on room air. c/o nonproductive cough. Denies SOB. Denies wheezing. Denies chest pain. Denies fever chills or sweating. 12/06: Cr level 1.7 back to baseline. Reached clinical stability. Discharged home. Discharge diagnosis: REHANA Time Spent with Patient Time attestation: Total time spent providing and/or coordinating discharge services: Interval history: History of present illness: Mr. Malone is a 75 year old M type 2 diabetes mellitus, essential hypertension's, mixed dyslipidemia, vasculitis, hypothyroidism, chronic kidney disease stage III, recently diagnosed Covid pneumonia, presenting with 5-day history of general body weakness and altered mental status. Patient is fully vaccinated against Covid pneumonia. Over the past 5 days, patient was noted by family member to have general body weakness as well as altered mental status. Patient is also seems to be more lethargic than his baseline. He also has mild shortness of breath with nonproductive cough. Denies any fever or chills. He was diagnosed with Covid pneumonia 2 days ago. He received a dose of outpatient monoclonal antibodies i nfusions against Covid yesterday. Patient was brought by family member to our ED today for evaluation mainly for his altered mental status and general body weakness. But at the time patient arrived the ED, his altered mental status has been resolved and his mental status went back to his baseline. Vital signs are within normal limits including oxygen saturation in the high 90s to 100% on room air. Labs significant for serum creatinine level 2.9 with baseline 1.7. Absence of leukocytosis with WBC 5.5. CT head without contrast no sign of acute intracranial pathologies. Admission request was made for IV fluid rehydration for acute kidney injury. 12/05: Serum Cr 2.9-->2.0. Been afebrile. Been on room air. c/o nonproductive cough. Denies SOB. Denies wheezing. Denies chest pain. Denies fever chills or sweating. 12/06: Cr level 1.7 back to baseline. Reached clinical stability. Discharged home. EXAM Constitutional Vitals: Temp Pulse Resp BP Pulse Ox 37.1 C 73 18 128/62 95 12/06/20 07:14 12/06/20 07:14 12/06/20 07:14 12/06/20 07:14 12/06/20 07:14 General appearance: cooperative and no acute distress Head Head exam: Present atraumatic and normocephalic Eye Eye exam: Present EOMI and PERRL ENT ENT exam: Present mucous membranes moist, normal exam and normal external ear exam Neck Neck exam: Present normal inspection; Absent lymphadenopathy, tenderness and thyromegaly Respiratory Respiratory exam: Absent accessory muscle use, respiratory distress and wheezes Cardiovascular Cardiovascular exam: Present normal rate and rhythm; Absent JVD GI/Abdominal GI/Abdominal exam: Present normal bowel sounds and soft; Absent organomegaly and tenderness Rectal Rectal exam: Present deferred Extremities Exam Extremities exam: Present full ROM, normal capillary refill and normal inspection; Absent tenderness Neurological Exam Neurological exam: Present alert, CN II-XII intact and oriented X3; Absent motor sensory deficit Psychiatric Psychiatric exam: Present normal affect and normal mood; Absent anxious and depressed Skin Skin exam: Present dry and intact Discharge Data Data Completed and Pending Labs on day of discharge: Labs from last 24 hours 12/06/20 12/06/20 05:34 05:34 WBC 4.2 L RBC 3.86 L Hgb 11.5 L Hct 37.6 L MCV 97.4 MCH 29.8 MCHC 30.6 L RDW 13.0 Plt Count 145 MPV 9.9 Neut % (Auto) 57.4 Lymph % (Auto) 28.0 Sunflower % (Auto) 11.8 Eos % (Auto) 2.6 Baso % (Auto) 0.2 Lymph # (Auto) 1.18 L Sunflower # (Auto) 0.50 Eos # (Auto) 0.11 Baso # (Auto) 0.01 Absolute Neutrophils 2.42 Sodium 137 Potassium 5.0 Chloride 108 Carbon Dioxide 19 L Anion Gap 10.0 BUN 22 Creatinine 1.7 H GFR Calculation 39 Glucose 79 Calcium 8.2 L Magnesium 2.0 Total Bilirubin 0.3 AST 28 ALT 15 Alkaline Phosphatase 102 Total Protein 5.5 L Albumin 3.2 Globulin 2.3 Albumin/Globulin Ratio 1.4 Discharge Plan Patient/Caregiver Discharge Instructions Activity: increase activity as tolerated Diet: Consistent Carbohydrate Prescriptions: Continued aspirin [Adult Aspirin Regimen] 81 mg tablet,delayed release (DR/EC) 81 mg PO QDAY RF: 0 amlodipine 5 mg tablet 5 mg PO QDAY Qty: 30 RF: 11 pantoprazole 40 mg tablet,delayed release (DR/EC) 40 mg PO QDAY Qty: 30 RF: 12 ferrous sulfate [Feosol] 325 mg (65 mg iron) tablet 325 mg PO QDAY Qty: 30 RF: 6 rosuvastatin 10 mg tablet 10 mg PO QDAY Qty: 30 RF: 6 (DME) blood pressure monitor Kit See Rx Instructions .ROUTE .MEDSUPPLY Qty: 1 RF: 0 lisinopril 10 mg tablet 10 mg PO QDAY RF: 0 metoprolol succinate 25 mg tablet extended release 24 hr 25 mg PO QDAY RF: 0 cholecalciferol (vitamin D3) 25 mcg (1,000 unit) capsule 25 mcg PO BID RF: 0 ICaps AREDS 14,320-226-200 [id number] capsule 1 cap PO BID RF: 0 fluoxetine 20 mg capsule 20 mg PO DAILY RF: 0 divalproex 125 mg tablet,delayed release (DR/EC) 125 mg PO DAILY RF: 0 levothyroxine [Euthyrox] 150 mcg tablet 150 mcg PO DAILY RF: 0 tamsulosin [Flomax] 0.4 mg capsule 0.8 mg PO QDAY Qty: 60 RF: 12 Follow Up Plan Follow up with: Gorge Payan MD [Primary Care Provider] - Patient Disposition: Home, Self-Care Rehab Potential: Good I certify that the patient requires SNF services: No Overall status at discharge: patient is back to baseline Discharge Orders: Discharge Order (Routine); Ordered 12/06/20 Ordered By: Mayur CABAN VTE Deep Vein Thrombosis/Pulmonary Embolism Present on Admission: No
== END 2020-12-06 13:50 | disposition home or self-care (01) | DRG 178 ==
LOC: ED 14:42 → MEDSUR 19:15
PROVIDERS: ADMIT Internal Medicine; ATTEND Internal Medicine